=== PATIENT | male | born 1965 | race Caucasian/White ===

== ENCOUNTER 2016-09-27 05:22 | Emergency (ER) | payer BC, OTHER ==
[~2016-09-27] VITALS: Ht 180.3 cm; Wt 84.5 kg
[2016-09-27 05:31] VITALS: TEMP 36.5; Ht 180.3 cm; Wt 84.5 kg
[2016-09-27] MEDS ORDERED: DIAZEPAM 5MG TAB PO STA ×2 (05:46→06:10)
[2016-09-27 06:03] VITALS: O2SAT 100
[2016-09-27 06:11] LABS: BUN/CREATININE RATIO 9.9 (10-20); CALCIUM 8.5 mg/dl (8.5-10.1); CREATININE 1.2 mg/dl (0.60-1.40); MAGNESIUM 1.8 mg/dl (1.8-2.4); POTASSIUM 3.4 mmol/L (3.5-5.1)
[2016-09-27] MEDS ORDERED: PANTOprazole SOD 40 MG TAB PO STA (06:13)
[2016-09-27] MEDS ORDERED: MULTI-VITAMIN INFUSION INJ 10 ML, THIAMINE HCL INJ 100 MG, FoLIC ACID INJ 1 MG in SODIU... IV ONE (06:15)
[2016-09-27 06:20] LABS: PARTIAL THROMBOPLASTIN RATIO 0.9; PROTHROMBIN TIME (PATIENT) 11.1 SECONDS (9.0-12.0)
[2016-09-27 06:23] LABS: BASO % 1.3 %; EOS % 0.7 %; HEMATOCRIT 41.4 % (42-52); IG% 0.5 %; LYMPH % 14.7 %; LYMPH ABS # 1.27 K/uL (1.2-3.4); MEAN CELL VOLUME 91.8 fL (80-100); MEAN CORPUSCULAR HEMOGLOBIN 32.4 pg (25-34); MEAN CORPUSCULAR HGB CONC 35.3 g/dl (32-36); MEAN PLATELET VOLUME 9.5 fL (7.4-10.4); MONO % 8.8 %; PLATELET COUNT 242 K/uL (130-400); RED BLOOD COUNT 4.51 M/uL (4.7-6.1); WHITE BLOOD COUNT 8.65 K/uL (4.8-10.8)
[2016-09-27 06:24] LABS: BASO ABS # 0.11 K/uL (0-0.2); COMPLETE YES
--- NOTE | 2016-09-27 06:26 | DIAGNOSTIC IMAGING REPORT ---
CHEST ONE VIEW PORTABLE CLINICAL HISTORY: SOB COMPARISON STUDY: No previous studies for comparison. FINDINGS: The cardiac and mediastinal contours are normal. There is no evidence of focal pulmonary consolidation. There is no evidence of failure. No pleural effusions are visualized.[ IMPRESSION: No active disease in the chest. Electronically signed by: Vinod Meeks M.D. 09/27/2016 6:25 AM Dictated Date/Time: 09/27/2016 6:24 AM
[2016-09-27] MEDS ORDERED: DIAZ-165 PO (06:42)
--- NOTE | 2016-09-27 06:44 | EMERGENCY ROOM VISIT NOTE ---
History Report prepared by Olivia: Tan Newman Under the Supervision of: Dr. Denisa Orona M.D. First contact with patient: 05:28 Chief Complaint: SHORTNESS OF BREATH Stated Complaint: SHORT OF BREATH History of Present Illness The patient is a 50 year old male who presents to the Emergency Room with complaints of constant shortness of breath beginning shortly prior to arrival. He also complains of generalized numbness. He states that his symptoms began suddenly. 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 He denies smoking cigarettes, but admits to chewing tobacco. He states that he drinks 2-3 beers every day, and states that he drank this normal amount yesterday. The patient has no known history of alcohol withdrawal. He states that the last time he ate was over 15 hours ago. He notes that he had some flu-like symptoms for the past few days which resolved yesterday. The patient has not seen a physician in several years. He also complains of upper abdominal pain. He denies any fevers, or vomiting. Source of History: patient Onset: shortly prior to arrival Quality: other (shortness of breath) Timing: constant Associated Symptoms: + abdominal pain (upper), + numbness (generalized ), No fevers, No vomiting Review of Systems See HPI for pertinent positives & negatives. A total of 10 systems reviewed and were otherwise negative. Past Medical & Surgical Medical Problems: (1) Alcohol dependence Family History No pertinent family history stated. Social History Smoking Status: Never Smoker Alcohol Use: occasionally Marital Status: single Housing Status: lives alone Occupation Status: employed Current/Historical Medications Scheduled PRN Diazepam (Valium), 5 MG PO TID PRN for withdrawl Allergies Coded Allergies: No Known Allergies (Unverified , 09/27/16) Physical Exam Vital Signs Date Time Temp Pulse Resp B/P Pulse Ox O2 Delivery O2 Flow Rate FiO2 09/27/16 07:29 160/98 09/27/16 06:59 89 18 156/102 09/27/16 06:03 94 18 170/105 100 Room Air 09/27/16 05:31 99 09/27/16 05:31 100 Room Air 09/27/16 05:31 36.5 96 17 165/108 99 Room Air Physical Exam Vital signs reviewed. General: Somewhat disheveled male. Hypertensive. Hyperventilating. HEENT: No scleral icterus, PERRLA, neck supple. Atraumatic. Cardiovascular: Tachycardic rate with a regular rhythm, no extra sounds. Pulmonary: Clear to auscultation bilaterally, normal work of breathing. Abdomen: Soft, nontender, nondistended, positive bowel sounds. Musculoskeletal: Atraumatic, no peripheral edema. Neurologic: Patient awake alert and oriented x 3, full strength in all 4 extremities. Cranial nerves 2 through 12 grossly intact. Bilateral upper extremity shaking noted. Skin: Warm, dry, no rash Medical Decision & Procedures ER Provider Diagnostic Interpretation: One View Chest X-ray interpreted by me: No focal lung consolidation. No failure. Normal mediastinum. Laboratory Results 09/27/16 05:32 Red Blood Count 4.51, Mean Corpuscular Volume 91.8, Mean Corpuscular Hemoglobin 32.4, Mean Corpuscular Hemoglobin Concent 35.3, Mean Platelet Volume 9.5, Neutrophils (%) (Auto) 74.0, Lymphocytes (%) (Auto) 14.7, Monocytes (%) (Auto) 8.8, Eosinophils (%) (Auto) 0.7, Basophils (%) (Auto) 1.3, Neutrophils # (Auto) 6.41, Lymphocytes # (Auto) 1.27, Monocytes # (Auto) 0.76, Eosinophils # (Auto) 0.06, Basophils # (Auto) 0.11 09/27/16 05:32 Test 09/27/16 05:32 09/27/16 06:10 09/27/16 06:16 White Blood Count 8.65 K/uL (4.8-10.8) Red Blood Count 4.51 M/uL (4.7-6.1) Hemoglobin 14.6 g/dL (14.0-18.0) Hematocrit 41.4 % (42-52) Mean Corpuscular Volume 91.8 fL (80-100) Mean Corpuscular Hemoglobin 32.4 pg (25-34) Mean Corpuscular Hemoglobin Concent 35.3 g/dl (32-36) Platelet Count 242 K/uL (130-400) Mean Platelet Volume 9.5 fL (7.4-10.4) Neutrophils (%) (Auto) 74.0 % Lymphocytes (%) (Auto) 14.7 % Monocytes (%) (Auto) 8.8 % Eosinophils (%) (Auto) 0.7 % Basophils (%) (Auto) 1.3 % Neutrophils # (Auto) 6.41 K/uL (1.4-6.5) Lymphocytes # (Auto) 1.27 K/uL (1.2-3.4) Monocytes # (Auto) 0.76 K/uL (0.11-0.59) Eosinophils # (Auto) 0.06 K/uL (0-0.5) Basophils # (Auto) 0.11 K/uL (0-0.2) RDW Standard Deviation 44.8 fL (36.4-46.3) RDW Coefficient of Variation 13.2 % (11.5-14.5) Immature Granulocyte % (Auto) 0.5 % Immature Granulocyte # (Auto) 0.04 K/uL (0.00-0.02) Prothrombin Time 11.1 SECONDS (9.0-12.0) Prothromb Time International Ratio 1.0 (0.9-1.1) Activated Partial Thromboplast Time 23.1 SECONDS (21.0-31.0) Partial Thromboplastin Ratio 0.9 Anion Gap 17.0 mmol/L (3-11) Est Creatinine Clear Calc Drug Dose 76.7 ml/min Estimated GFR () 80.1 Estimated GFR (Non- 69.1 BUN/Creatinine Ratio 9.9 (10-20) Calcium Level 8.5 mg/dl (8.5-10.1) Magnesium Level 1.8 mg/dl (1.8-2.4) Total Bilirubin 0.5 mg/dl (0.2-1) Direct Bilirubin 0.1 mg/dl (0-0.2) Aspartate Amino Transf (AST/SGOT) 23 U/L (15-37) Alanine Aminotransferase (ALT/SGPT) 28 U/L (12-78) Alkaline Phosphatase 14 U/L (45-117) Total Creatine Kinase 94 U/L (39-308) Creatine Kinase MB 0.9 ng/ml (0.5-3.6) Creatine Kinase MB Ratio 1.0 (0-3.0) Total Protein 7.9 gm/dl (6.4-8.2) Albumin 4.4 gm/dl (3.4-5.0) Lipase 135 U/L (73-393) Ethyl Alcohol mg/dL < 3.0 mg/dl (0-3) Bedside Troponin I 0.000 ng/ml (0-0.045) Laboratory results per my review. Medications Administered Medications (Trade) Dose Ordered Sig/Jonh Route Start Time Stop Time Status Last Admin Dose Admin Diazepam (Valium Tab) 5 mg NOW STAT PO 09/27/16 05:46 09/27/16 05:48 DC 09/27/16 06:01 5 MG Diazepam (Valium Tab) 5 mg NOW STAT PO 09/27/16 06:10 09/27/16 06:12 DC 09/27/16 06:33 5 MG Pantoprazole Sodium (Protonix Tab) 40 mg NOW STAT PO 09/27/16 06:13 09/27/16 06:14 DC 09/27/16 06:33 40 MG ECG Indication: SOB/dyspnea Rate (beats per minute): 99 Rhythm: normal sinus Findings: no acute ischemic change, no ectopy ED Course 0541: Past medical records reviewed. The patient was evaluated in room B7. A complete history and physical examination was performed. 0546: Ordered Valium Tab 5 mg PO. 0610: Ordered Valium Tab 5 mg PO, Protonix Tab 40 mg PO, Multivitamins 10 mL/ Thiamine HCl 100 mg/Folic Acid 1 mg/Sodium Chloride 1011.2 ml @ 500 mls/hr IV. 0640: Upon reevaluation, the patient appeared to have improvement of his symptoms. I discussed findings with him. The patient verbalized agreement of the treatment plan. He was discharged home. Medical Decision Differential diagnosis: Etiologies such as infections, reactive airway disease, pneumonia, pneumothorax , COPD, CHF, cardiac ischemia, pulmonary embolism, musculoskeletal, gastrointestinal, as well as others were entertained. This patient was evaluated and appeared to be in no significant distress. He is noted to be slightly tachycardic and hypertensive. Patient was given 10 mg of oral Valium for the likelihood of alcohol withdrawal. Patient states he has not felt well for the last several days. I suspect his alcohol consumption has been less than usual. Patient's laboratory work is fairly unrevealing. The patient does not have a desire for inpatient rehabilitation or detox. He prefers to go home. He was given a short prescription for oral Valium and will follow-up with a physician as soon as possible. He was offered outpatient resources for DNA counseling however has refused. He will return to the ER at any time for worsening of symptoms or any medical concerns. Impression Primary Impression: Alcohol withdrawal Additional Impression: Alcohol dependence Scribe Attestation The scribe's documentation has been prepared under my direction and personally reviewed by me in its entirety. I confirm that the note above accurately reflects all work, treatment, procedures, and medical decision making performed by me. Departure Information Dispostion Home / Self-Care Prescriptions Diazepam (Valium) 5 Mg Tab 5 MG PO TID Y for withdrawl, #14 TAB Prov: Denisa Orona M.D. 09/27/16 Referrals No Doctor, Assigned (PCP) Forms HOME CARE DOCUMENTATION FORM, IMPORTANT VISIT INFORMATION Patient Instructions My [facility] Additional Instructions Diagnosis: Alcohol dependence, withdrawal Valium 5 mg 3 times daily as needed for withdrawal symptoms. Drink plenty of water throughout the day. Follow-up with your physician this week for reevaluation. Consider drug and alcohol counseling. Return to the emergency department for worsening of symptoms or any medical concerns. Problem Qualifiers
[2016-09-27 06:59] VITALS: PULSE 89
[2016-09-27 07:29] VITALS: BP 160/98
== END 2016-09-27 07:30 | disposition home or self-care (01) ==
LOC: EDBD 05:22 → C.EDB 05:23
DX: F10.239 Alcohol dependence with withdrawal, unspecified (principal); F17.220 Nicotine dependence, chewing tobacco, uncomplicated